=== PATIENT | male | born 1995 ===

== ENCOUNTER 2023-03-09 00:19 | Emergency (ER) | payer OTHER, SELFPAY ==
[2023-03-09 00:20] VITALS: BP 127/62; PULSE 75; RESP 18; TEMP 36.8; O2SAT 96; BMI 29.2
--- NOTE | 2023-03-09 01:21 | ED.GENADULT ---
HPI - General Adult General Chief complaint: Ear Problems Stated complaint: ear infection Time Seen by Provider: 03/09/23 01:25 Source: patient Mode of arrival: ambulatory Limitations: no limitations History of Present Illness HPI narrative: Patient is a 28 year old assigned male at with no reported medical history presenting to the emergency department today with left ear pain and intermittent left sided hearing loss. Patient states that over the last few days he has felt generally unwell with a cough, left ear pain, and intermittent left sided hearing loss that is improving. Patient denies any dizziness, lightheadedness, abdominal pain, nausea, vomiting, fever, chills, blurry vision, double vision, loss of vision, chest pain, difficulty breathing, shortness of breath, back pain, night sweats, pain with urination, increased urinary frequency, increased urinary urgency, blood in his urine or stool, syncope or a near syncopal episode, recent trauma or falls, bowel incontinence, bladder incontinence, bowel retention, bladder retention, or any other complaints at this time. Onset (ago): day(s) Severity: mild Severity scale (1-10): 2 Relieving factors: none Exacerbating factors: none Associated symptoms: cough Treatments prior to arrival: none Related Data Previous Rx's Medication Instructions Recorded amoxicillin 875 mg-potassium 1 tab PO BID 7 days #14 tabs 03/09/23 clavulanate 125 mg tablet prednisone 20 mg tablet 20 mg PO DAILY 7 days #7 tabs 03/09/23 Allergies Allergy/AdvReac Type Severity Reaction Status Date / Time No Known Allergies Allergy Verified 03/09/23 00:25 Review of Systems Constitutional: Constitutional: Reports no additional constitutional complaints, Denies chills, Denies fever(s) and Denies night sweats Eyes: Eyes: Reports no additional eye complaints, Denies blurry vision, Denies change in vision, Denies diplopia, Denies eye discharge, Denies loss of vision and Denies eye pain ENT: Denies dizziness Comments: left ear pain Cardiovascular: Cardiovascular: Reports no additional cardiovascular complaints, Denies chest pain, Denies lightheadedness, Denies Loss of Consciousness and Denies dyspnea Respiratory: Respiratory: Reports no additional respiratory complaints, Reports cough and Denies dyspnea Gastrointestinal: Gastrointestinal: Reports no additional gastrointestinal complaints, Denies abdominal pain, Denies melena, Denies hematochezia, Denies change in bowel habits and Denies change in stool character Genitourinary: Genitourinary: Reports no additional male genitourinary complaints, Denies hematuria, Denies oliguria, Denies difficulty urinating, Denies dysuria, Denies urinary frequency, Denies urinary hesitancy, Denies urinary incontinence and Denies urinary urgency Musculoskeletal: Musculoskeletal: Reports no additional musculoskeletal complaints, Denies numbness and Denies tingling Neurologic: Denies dizziness, Denies loss of vision, Denies numbness and Denies tingling Psychiatric: Psychiatric: Reports no additional psychiatric complaints Endocrine: Endocrine: Reports no additional endocrine complaints Hematologic/Lymphatic: Hematologic/Lymphatic: Reports no additional hematologic/lymphatic complaints Allergic/Immunologic: Allergic/Immunologic: Reports no additional allergic/immunologic complaints PMFSH Past Medical History Attestation statement: The following information was validated with the patient. Source: old records reviewed and nursing notes reviewed Onset Date is defined in the Problem List Problems that require an onset date and time if occurred within 24 hrs of arrival to the ED Aortic Dissection and Rupture; Neurologic impairment; Cardiopulmonary Arrest; Endotracheal Intubation; Insertion or Replacement of Mechanical Circulatory Assist Device Social History Social History Advance Directives: No Advance Directives Information Provided: No Physical Exam ED Vital Signs: Vital Signs - 24 hr 03/09/23 00:20 Temperature 98.2 F Pulse Rate 75 Respiratory Rate 18 Blood Pressure 127/62 Pulse Oximetry 96 Oxygen Delivery Method Room Air BMI result Body Mass Index 29.2 Const General: cooperative, no acute distress, alert and awake Nutritional Appearance: well nourished Orientation/consciousness: patient oriented x3 Limitations: no limitations HENMT Head: Yes normal to inspection and Yes atraumatic Ears: hearing grossly normal bilaterally, external ears normal, TM normal on the right, TM normal on the left and Abnormal EAC present excessive cerumen on the right General nose exam: Normal external nose present, no nasal discharge noted and no epistaxis Face and sinus: Yes normal facial exam, No abrasion and No laceration Mouth: Normal oral and palatal mucosa present, no drooling and no muffled voice Eyes General: appearance normal, both eyes and all related structures Periorbital: periorbital findings normal Eyelids: Yes eyelids normal Conjunctivae: conjunctivae normal Pupils: Equal, round and reactive pupils present EOM: EOMs intact bilaterally Neck Neck: Yes normal visual inspection, Yes full ROM and Yes no lymphadenopathy Chest Chest palpation & inspection: normal inspection of the chest Resp Effort & Inspection: normal respiratory effort and able to speak in complete sentences GI Inspection: Yes normal to inspection Neuro General: patient oriented x3 and moves all extremities Cranial nerves: Yes Equal, round and reactive pupils present Cognition (Neuro): normal cognition Motor exam (neuro): 5/5 motor strength present throughout Sensory Exam: Normal double simultaneous stimulation for sensation Coordination: [id number] test normal Extrem General: Yes normal to inspection, Yes full ROM and Yes capillary refill normal Psych Appearance: grossly normal Mental Status: mental status grossly normal Affect: normal affect Attitude: cooperative Thought process: Normal thought process present Thought content: Normal thought content present Insight: Good insight present (Psych) Medical Decision Making Medical Decision Making MDM Narrative: Patient is a 28 year old assigned male at with no reported medical history presenting to the emergency department today with left sided ear pain and a cough. Patient's physical exam was as noted in the physical exam portion of this note. Patient's COVID-19 and influenza tests were negative. Patient's RSV test was positive. I explained my physical exam findings as well as all test results to the patient. I answered all questions asked by the patient. I stressed the importance of the patient taking his medication as prescribed. I stressed the importance of the patient following up with his primary care provider. I stressed the importance of the patient returning to the emergency department immediately if his symptoms were to worsen or if he were to develop any dizziness, shortness of breath, difficulty breathing, chest pain, blurry vision, loss of vision, nausea, vomiting, abdominal pain, fever, chills, back pain, or any other complaints. Patient verbalized agreement and understanding with this treatment plan and discharge. Differential Diagnosis Differential Diagnoses: The differential diagnosis associated with the presentation includes Left otitis media Left otitis externa RSV Influenza COVID-19 Admission/Observation Consideration of admission/observation: Escalation of care including admission/observation considered Patient would have been admitted to the hospital had his work up had any findings where hospital admission was appropriate and his clinical presentation warranted hospital admission. Lab Data [facility] Lab Attestation statement: I reviewed the patient's lab results. My interpretation of these results are in the MDM Rationale portion of this note. Labs: Lab Results 03/09/23 Range/Units Unknown Influenza Type A (PCR) NEGATIVE (Negative) Influenza Type B (PCR) NEGATIVE (Negative) RSV RNA Qual (PCR) POSITIVE A (Negative) SARS-CoV-2 RNA (RT-PCR) NEGATIVE (Negative) Prescription Management I considered prescription management with: Antibiotic (patient prescribed an antibiotic to cover for otitis) Discharge Plan Discharge Clinical Impression: Respiratory syncytial virus (RSV), Otitis media Patient Disposition: Home, Self-Care Instructions: Respiratory Syncytial Virus (ED), Ear Infection (ED) Additional Instructions: Follow up with your primary care provider. Return to the emergency department immediately if your symptoms worsen or if you develop any dizziness, shortness of breath, difficulty breathing, chest pain, blurry vision, loss of vision, nausea, vomiting, abdominal pain, fever, chills, back pain, or any other complaints. Prescriptions: New prednisone 20 mg tablet 20 mg PO DAILY 7 Days Qty: 7 0RF amoxicillin-pot clavulanate 875-125 mg tablet 1 tab PO BID 7 Days Qty: 14 0RF Referrals: [facility] [place] Family Medicine [Provider Group] (Call to establish and follow up with a primary care provider. If you already have a primary care provider, please follow up with them.) [facility] [place] [facility] [Provider Group] (Call to establish and follow up with a primary care provider. If you already have a primary care provider, please follow up with them.) [facility] [place] Primary Care,[facility] [Provider Group] (Call to establish and follow up with a primary care provider. If you already have a primary care provider, please follow up with them.) Interventions: ED Discharge Assessment Last Done: 03/09/23 01:33 Discharge Date/Time: 03/09/23 01:34 Print Language: Estonian
[2023-03-09 01:26] VITALS: BP 114/51; PULSE 84; RESP 18; TEMP 37; O2SAT 96
[2023-03-09 02:11] LABS: Influenza A PCR NEGATIVE (Negative); Influenza B PCR NEGATIVE (Negative); Resp Syncy Virus RNA Qual PCR POSITIVE (Negative); SARS COV2 PCR INHOUSE NEGATIVE (Negative)
== END 2023-03-09 01:34 | disposition home or self-care (01) ==
PROVIDERS: Physician Assistant Medical; Emergency Provider Internal Medicine
DX: H65.92 Unspecified nonsuppurative otitis media, left ear (principal); B97.4 Respiratory syncytial virus as the cause of diseases classified elsewhere; Z20.822 Contact with and (suspected) exposure to COVID-19; Z20.828 Contact with and (suspected) exposure to other viral communicable diseases
CPT/HCPCS: 0241U; 99283

== ENCOUNTER 2024-03-10 15:59 | Emergency (ER) | payer OTHER, SELFPAY ==
--- NOTE | ~2024-03-10 | XR_ITS ---
CLINICAL HISTORY: lower back pain 3 views lumbar spine Comparison: None Findings: Normal vertebral body alignment. No acute fractures or dislocation. No significant degenerative change. IMPRESSION: No acute findings. This document has been electronically signed by: Gavin Duffy MD on 03/10/2024 17:38:49
[2024-03-10 16:09] VITALS: BP 135/80; PULSE 71; RESP 18; TEMP 36.7; O2SAT 99; BMI 29.4
--- NOTE | 2024-03-10 16:14 | ED.GENADULT ---
HPI - General Adult General Chief complaint: Back Pain/Injury Stated complaint: low back pain Time Seen by Provider: 03/10/24 21:30 Source: patient Limitations: no limitations History of Present Illness HPI narrative: 29-year-old male presents for evaluation of low back pain. It is that his symptoms have been going on for approximately 4 weeks. He reports that during this time he has started running on a treadmill. Patient states after some time running he does have some soreness to the low back. Back is tight and pulling. He denies any direct trauma. Patient states makes it worse. He has not tried any other medication. Patient states he feels as though his urine is ?bubbly? but denies any penile discharge, fevers, nausea, vomiting, and abdominal pain dysuria or hematuria. He denies any history of kidney stones. He has been eating and drinking normally. He is otherwise feeling well. No bowel or bladder incontinence. Related Data Previous Rx's ?Medication ?Instructions ?Recorded amoxicillin 875 mg-potassium 1 tab PO BID 7 days #14 tabs 03/09/23 clavulanate 125 mg tablet prednisone 20 mg tablet 20 mg PO DAILY 7 days #7 tabs 03/09/23 Allergies Allergy/AdvReac Type Severity Reaction Status Date / Time No Known Allergies Allergy Verified 03/10/24 16:12 Review of Systems Constitutional: Constitutional: Denies chills and Denies fever(s) Cardiovascular: Cardiovascular: Denies chest pain, Denies palpitations, Denies dyspnea, Denies dyspnea on exertion and Denies orthopnea Respiratory: Respiratory: Denies cough, Denies dyspnea and Denies dyspnea on exertion Gastrointestinal: Gastrointestinal: Denies abdominal pain, Denies melena, Denies hematochezia, Denies diarrhea, Denies nausea and Denies vomiting Genitourinary: Genitourinary: Denies difficulty urinating, Denies dysuria and Denies urinary urgency Musculoskeletal: Musculoskeletal: Denies abnormal gait, Reports back pain, Denies myalgias, Denies muscle weakness, Denies numbness and Denies radiating pain into limb Integumentary/Breasts: Skin/Breast: Denies rash Neurologic: Denies abnormal gait, Denies focal weakness and Denies numbness Psychiatric: Psychiatric: Denies depression Endocrine: Endocrine: Denies palpitations PMFSH Social History Social History Unable to assess alcohol history related to: Unknown Smoked in Last 30 Days: No Use of substances other than those prescribed or required for medical reasons: No Advance Directives: No Advance Directives Information Provided: Yes Do you have a plan to hurt others: No Plan Physical Exam ED Vital Signs: Vital Signs - 24 hr 03/10/24 16:09 03/10/24 21:23 03/10/24 22:25 Temperature 98.1 F 97.5 F 97.5 F Pulse Rate 71 68 68 Respiratory Rate 18 16 16 Blood Pressure 135/80 122/61 122/61 Pulse Oximetry 99 100 100 Oxygen Delivery Method Room Air Room Air Room Air BMI result Body Mass Index 29.4 Const General: cooperative, no acute distress, alert and awake Orientation/consciousness: patient oriented x3 Resp Auscultation: clear to auscultation bilaterally Cardio Rate: regular rate Rhythm: regular rhythm Back/Spine/Pelvis Other: Patient is ambulatory in the emergency department without difficulty. Special Investigation Unit Investigator is 5/5 bilaterally. Full range of motion of all joints. Mild lumbar muscle tightness without any tenderness. No obvious spasm. No change with twisting. No skin changes or ecchymosis. No sciatic notch tenderness bilaterally Neuro General: patient oriented x3 and CN's II-XI intact bilaterally Course Course Course Narrative: This is a rapid medical exam performed by Sergio Kelly NP: Additional HPI, ROS, PE not included below will be deferred to primary provider. Patient is a 29-year-old male presenting with mid to lower back pain, also reports bubbles in his urine. Plan: UA, lumbar x-ray Medical Decision Making Medical Decision Making MDM Narrative: 29-year-old male with low back pain over the past several weeks, intermittent in nature and appears to be exacerbated with recent running on a treadmill. He denies any direct trauma. X-ray and urinalysis are unremarkable. There are no focal deficits on exam. He is ambulatory without difficulty. I have had a discussion with the patient regarding additional medications such as a muscle relaxer but the patient has refused. He will continue symptomatic and follow up with PCP. Consideration with the patient to rest and avoid strenuous activity. No evidence of cauda equina , no acute radiculopathy therefore defer on additional imaging at this time. Patient expresses understanding of all discharge instructions and has no further questions at this time. Differential Diagnosis Differential Diagnoses: The differential diagnosis associated with the presentation includes Cauda equina Disc herniation Muscle spasm Nerve impingement Muscle strain Lab Data MDM Lab Attestation statement: I reviewed the patient's lab results. Labs: Lab Results 03/10/24 Range/Units 17:16 Urine Color Yellow Urine Appearance Clear Urine pH 6.0 (5.0-9.0) Ur Specific [place] 1.010 (1.005-1.025) Urine Protein Negative (Neg-Trace) mg/dL Urine Glucose (UA) Negative (Negative) mg/dL Urine Ketones Negative (Negative) mg/dL Urine Blood Negative (Negative) Urine Nitrite Negative (Negative) Ur Leukocyte Esterase Negative (Negative) Radiology Impression Discussion of test interpretation with radiology: I have reviewed the radiologist's reading. Radiologist Impression: [address] [address] XRay Report Signed Patient: Taz Lund MR#: [id number] : 1995 Acct:[id number] Age/Sex: 29 / M ADM Date: 03/10/24 Loc: .ED Attending Dr: Ordering Physician: La Kelly NP Date of Service: 03/10/24 Procedure(s): XR lumbar spine 2-3V Accession Number(s): [id number] cc: Physician,None ; La Kelly NP~ CLINICAL HISTORY: lower back pain 3 views lumbar spine Comparison: None Findings: Normal vertebral body alignment. No acute fractures or dislocation. No significant degenerative change. IMPRESSION: No acute findings. This document has been electronically signed by: Gavin Duffy MD on 03/10/2024 17:38:49 Dictated By: Gavin Duffy MD Signed By: <Electronically signed by Gavin Duffy MD in OV> 03/10/24 1740 DD/ 1738 TD/TT: 03/10/24 1738 Back Filler Operator: Discharge Plan Discharge Clinical Impression: Strain of lumbar region Qualifiers: Encounter type: initial encounter Qualified Code(s): S39.012A - Strain of muscle, fascia and tendon of lower back, initial encounter Patient Disposition: Home, Self-Care Instructions: Acute Low Back Pain (ED) Additional Instructions: Urine test and x-ray of your low back were normal today. Rest. Avoid strenuous activity. Warm compresses. Gentle stretching. Ibuprofen as directed, available [id number]. Take with food. Follow-up with your primary care provider. Call this week to schedule a follow-up appointment. Return to the emergency department if you have any worsening of symptoms, or any concerns. Get well soon! Prescriptions: No Action prednisone 20 mg tablet 20 mg PO DAILY 7 Days Qty: 7 0RF amoxicillin-pot clavulanate 875-125 mg tablet 1 tab PO BID 7 Days Qty: 14 0RF Interventions: ED Discharge Assessment Last Done: 03/10/24 22:25 Discharge Date/Time: 03/10/24 22:26 Print Language: Latvian
--- OUTSIDE RECORDS SUMMARY | 2024-03-10 16:45 | XMS_ITS | Continuity of Care Document ---
Author Name [facility] Organization [facility] Care Team Providers Care Retail Service Representative Name Role Phone [facility] Unavailable Unavailable Medications Combined list of outpatient medications from Department of Defense and Veterans Affairs facilities.Medications provided include 1) outpatient medications from the last 15 months, and 2) patient-reported medications. Medication Details Route Status Patient Instructions Prescription Expires Prescription Number Last Dispense Date Ordering Provider Order Date Order Qty Source AMOX TR-POTASSIU M CLAVULANATE (AMOXICILLI N/POTASSIUM CLAV), 875-125 MG, TABLET, ORAL, AUROBINDO PHARM, 20 ea. BOTTLE Active [id number] 2023 14 Pharmac y Data Transac tion Service Facilit y ONDANSETRON ODT (ONDANSETRO N), 4 MG, TAB RAPDIS, ORAL, AUROBINDO PHARM, 30 ea. BLIST PACK Active [id number] 4 2023 10 Pharmac y Data Transac tion Service Facilit y PREDNISONE (prednisone ), 20 MG, TABLET, ORAL, MYLAN, 500 ea. BOTTLE Active [id number] 4 2023 7 Pharmac y Data Transac tion Service Facilit y Allergies, Adverse Reactions, Alerts Combined list of allergies from Department of Defense and Veterans Affairs facilities. It does not include entries that were removed or entered in error. Substance Category Reaction Severity Reaction type Status Date Reported Comments Source No Known Allergies Drug allergy (disorder) active 01/16/2016 [place] [address] Immunizations Combined list of available immunizations from the Department of Defense and Veterans Affairs facilities. Immunization Series Date Given Administered By Site Reaction Lot Number CVX Code Drug Trains Dispatcher Supervisor Status Comments Source COVID-19, mRNA, LNP-S, PF, 30 mcg/0.3 mL dose 2020 [place] (PFR) Not Given COVID-19, mRNA, LNP-S, PF, 30 mcg/0.3 mL dose [facility] COVID-19, mRNA, LNP-S, PF, 30 mcg/0.3 mL dose 2020 [employer] [place] (PFR) Not Given COVID-19, mRNA, LNP-S, PF, 30 mcg/0.3 mL dose DoD influenza virus vaccine, inactivated 2019 JACK Ortiz ochoa, left (delt oid) [id number] Seqirus, A [employer] complet ed influenza virus vaccine, inactivat ed 12/28/19 Given [id number] cathy Ocasio [facility] influenza, injectable, quadrivalent- pf 2018 [id number] Seqirus complet ed influenza , injectabl e, quadrival ent-pf 02/11/19 Given Ambulat ory Pharmac y influenza, injectable, quadrivalent 2017 [id number] 158 GlaxoSmithKli ne complet ed influenza , injectabl e, quadrival ent 01/08/18 Given Ambulat ory Pharmac y influenza, injectable, quadrivalent 2017 [id number] 158 GlaxoSmithKli ne complet ed influenza , injectabl e, quadrival ent 01/08/18 Given Ambulat ory Pharmac y influenza, injectable, quadrivalent, contains preservative 3 2017 [id number] 158 SmithKline (SKB) complet ed influenza , injectabl e, quadrival ent, contains preservat gema DoD Influenza, inj, MDCK, quadrivalent- pf 2016 [id number] Seqirus complet ed Influenza , inj, MDCK, quadrival ent-pf 02/13/17 Given Ambulat ory Pharmac y Influenza, inj, MDCK, quadrivalent- pf 2016 [id number] 171 Seqirus complet ed Influenza , inj, MDCK, quadrival ent-pf 02/13/17 Given Ambulat ory Pharmac y Influenza, injectable, Madin Jackson Canine Kidney, preservative free, quadrivalent 2 2016 [id number] 171 Seqirus (SEQ) comple t ed Influenza , injectabl e, Madin Ilsa Canine Kidney, preservat gema free, quadrival ent DoD hepatitis B adult vaccine 2016 [id number] 43 GlaxoSmithKli ne complet ed hepatitis B adult vaccine 08/08/16 Given Ambulat ory Pharmac y hepatitis B adult vaccine 2016 [id number] 43 GlaxoSmithKli ne complet ed hepatitis B adult vaccine 08/08/16 Given Ambulat ory Pharmac y hepatitis B vaccine, adult dosage 3 2016 [id number] 43 SmithKline (SKB) complet ed hepatitis B vaccine, adult dosage DoD hepatitis B adult vaccine 2015 [id number] 43 GlaxoSmithKli ne complet ed hepatitis B adult vaccine 02/24/16 Given Ambulat ory Pharmac y varicella virus vaccine 2015 [id number] 21 Merck & Company Inc complet ed varicella virus vaccine 02/24/16 Given Ambulat ory Pharmac y varicella virus vaccine 2015 [id number] 21 Merck & Company Inc complet ed varicella virus vaccine 02/24/16 Given Ambulat ory Pharmac y hepatitis B adult vaccine 2015 [id number] 43 GlaxoSmithKli ne complet ed hepatitis B adult vaccine 02/24/16 Given Ambulat ory Pharmac y varicella virus vaccine 1 2015 [id number] 21 Merck (MSD) complet ed varicella virus vaccine DoD hepatitis B vaccine, adult dosage 1 2015 [id number] 43 SmithKline (SKB) complet ed hepatitis B vaccine, adult dosage DoD varicella virus vaccine 2015 [id number] 21 Merck & Company Inc complet ed varicella virus vaccine 01/14/16 Given Ambulat ory Pharmac y hepatitis B adult vaccine 2015 [id number] 43 GlaxoSmithKli ne complet ed hepatitis B adult vaccine 01/14/16 Given Ambulat ory Pharmac y varicella virus vaccine 2015 [id number] 21 Merck & Company Inc complet ed varicella virus vaccine 01/14/16 Given Ambulat ory Pharmac y hepatitis B adult vaccine 2015 [id number] 43 GlaxoSmithKli ne complet ed hepatitis B adult vaccine 01/14/16 Given Ambulat ory Pharmac y varicella virus vaccine 1 2015 [id number] 21 Merck (MSD) complet ed varicella virus vaccine DoD hepatitis B vaccine, adult dosage 1 2015 [id number] 43 SmithKline (SKB) complet ed hepatitis B vaccine, adult dosage DoD tetanus, diphtheria, acellular pertu is 2015 [id number] 115 GlaxoSmithKli ne complet ed tetanus, diphtheri a, acellular pertussis 01/09/16 Given Ambulat ory Pharmac y tuberculin purified protein derivative 2015 [id number] 96 sanofi pasteur complet ed tuberculi n purified protein derivativ e 01/09/16 Given Ambulat ory Pharmac y influenza, injectable, quadrivalent- pf 2015 [id number] 150 Seqirus complet ed influenza , injectabl e, quadrival ent-pf 01/09/16 Given Ambulat ory Pharmac y poliovirus vaccine, inactivated 2015 [id number] 10 sanofi pasteur complet ed polioviru s vaccine, inactivat ed 01/09/16 Given Ambulat ory Pharmac y adenovirus vaccine, live 2015 [id number] 143 Teva Pharmaceutica ls complet ed adenoviru s vaccine, live 01/09/16 Given Ambulat ory Pharmac y influenza, seasonal, injectable-pf 2015 [id number] 140 Seqirus complet ed influenza , seasonal, injectabl e-pf 01/09/16 Given Ambulat ory Pharmac y meningococcal A,C,Y,W-135 (MCV4P) 2015 [id number] 114 sanofi pasteur complet ed meningoco ccal A,C,Y,W-1 35 (MCV4P) 01/09/16 Given Ambulat ory Pharmac y tetanus, diphtheria, acellular pertu is 2015 [id number] 115 EyelationK[employer] ne complet ed tetanus, diphtheri a, acellular pertussis 01/09/16 Given Ambulat ory Pharmac y meningococcal A,C,Y,W-135 (MCV4P) 2015 [id number] 114 sanofi pasteur complet ed meningoco ccal A,C,Y,W-1 35 (MCV4P) 01/09/16 Given Ambulat ory Pharmac y poliovirus vaccine, inactivated 2015 [id number] 10 sanofi pasteur complet ed polioviru s vaccine, inactivat ed 01/09/16 Given Ambulat ory Pharmac y adenovirus vaccine, live 2015 [id number] 143 Teva Pharmaceutica ls complet ed adenoviru s vaccine, live 01/09/16 Given Ambulat ory Pharmac y influenza, seasonal, injectable-pf 2015 [id number] 140 Seqirus complet ed influenza , seasonal, injectabl e-pf 01/09/16 Given Ambulat ory Pharmac y influenza, injectable, quadrivalent- pf 2015 [id number] 150 Seqirus complet ed influenza , injectabl e, quadrival ent-pf 01/09/16 Given Ambulat ory Pharmac y poliovirus vaccine, inactivated 1 2015 [id number] 10 Sanofi Pasteur ([facility]) complet ed polioviru s vaccine, inactivat ed DoD meningococcal polysaccharid e (groups A, C, Y and W-135) diphtheria toxoid conjugate vaccine (MCV4P) 1 2015 [id number] 114 Sanofi Pasteur ([facility]) complet ed meningoco ccal polysacch aride (groups A, C, Y and W-135) diphtheri a toxoid conjugate vaccine (MCV4P) DoD tetanus toxoid, reduced diphtheria toxoid, and acellular pertu is vaccine, adsorbed 1 2015 [id number] 115 [employer] (SKB) complet ed tetanus toxoid, reduced diphtheri a toxoid, and acellular pertussis vaccine, adsorbed DoD Influenza, seasonal, injectable, preservative free 1 2015 [id number] 140 Seqirus (SEQ) comple t ed Influenza , seasonal, injectabl e, preservat gema free DoD Adenovirus, type 4 and type 7, live, oral 1 2015 [id number] 143 [facility] (R) complet ed Adenoviru s, type 4 and type 7, live, oral DoD Influenza, injectable, quadrivalent, preservative free 1 2015 [id number] 150 Seqirus (SEQ) comple t ed Influenza , injectabl e, quadrival ent, preservat gema free DoD measles virus vaccine 0 2015 05 () Not Given measles virus vaccine DoD rubella virus vaccine 0 2015 06 () Not Given rubella virus vaccine DoD mumps virus vaccine 0 2015 07 () Not Given mumps virus vaccine DoD hepatitis A vaccine, adult dosage 0 2015 52 () Not Given hepatitis A vaccine, adult dosage DoD Vital Signs Combined list of inpatient and outpatient Vital Signs from Department of Defense and Veterans Affairs, ranging from 12 months to all on record, depending upon the facility. Vital Sign Value Date Comments Source No data available for this section Ambulatory Pharmacy Encounters Combined list of: 1) Encounters from Department of Veterans Affairs facilities [facility] 2) Encounters from the Department of Defense facilities going back up to 280 months. Location Location Details Encounter Type Encounter Number Reason For Visit Attending Provider ADM Date DC Date Status Disposition Source [facility] [place] [address]([facility]a ring Conservat ion, BMT) OUTPATIENT [id number] MAXIMUS AJITH Valadez 01/15 Released w/o Limitations [facility] [place] [address](H earing Conserv ation, BMT) [facility] [address]([facility]) OUTPATIENT [id number] Notes Entered by: DIAN MCCULLOUGH 16 Jan 2016 0805 ------- ------- ------- ------- -- Strep Prophyl VENECIA Quesada 01/15 Released w/o Limitations [facility] [place] [address]([facility] d) [facility] [address]([facility]) OUTPATIENT [id number] Notes Entered by: ESMER NGUYEN MA P 21 Jan 2016 1157 ------- ------- ------- ------- -- Cold KERI Marion 01/20 Released w/o Limitations [facility] [place] [address]([facility]) Carl Aguilar [facility]ly [facility]) TELE CONSULT [id number] Notes Entered by: Alexandr LIMON 09 Aug 2017 1130 ------- ------- ------- ------- -- In Person RANDELL SMITH 08/09 Other Not Elsewhere Classified Carl woodruff [facility]( [facility]) [id number] [facility] Outpatient [id number] SHAHBAZ FELIPE 12/23 Discharge Disposition: Home or Self Care [id number] [facility] Procedures Combined list of: 1) Procedures from Department of Veterans Affairs facilities going back up to thelast 18 months, not all VA non-surgical procedures are included; 2) All procedures from the Department of Defense facilities. Procedure Procedure Type Code Date Perfomer Comments Rafita rose No data available for this section Ambulato ry Pharmacy Physician Supervised Injection Intramuscular Antibiotic Physician Supervised Injection Intramuscular Antibiotic [id number] 01/16/20 16 VENECIA MCCULLOUGH [facility] Threshold Audiogram (Pure Tone) Automated Threshold Audiogram (Pure Tone) Automated 0208T 01/16/20 16 MAXIMUS AJITH Valadez [facility] THERAPEUTIC, PROPHYLACTIC, OR DIAGNOSTIC INJECTION (SPECIFY SUBSTANCE OR DRUG); SUBCUTANEOUS OR INTRAMUSCULAR 01/16/20 16 [facility] PURE TONE AUDIOMETRY (THRESHOLD), AUTOMATED; AIR ONLY 01/16/20 16 [facility] Social History Combined list of available smoking, tobacco, and other social history from Department of Defense and Veterans Affairs facilities. Social History Type Response Date Comment [facility] e Male 12/08/2019 Ambulatory Pha rmacy Sexual Orientation Ambula tory Pharmacy Gender identity Ambulator y Pharmacy This section is an empty soc ial history section. DoD Assessment and Plan Combined list of future care activities from Department of Defense and Veterans Affairs facilities (e.g., assessment and plan notes, appointments, orders, and referrals). Additional future care activities may be listed in the Plan of Care section. Result Assessment and Plan Date Source Assessment and Plan Extracted from:Title : AUoF PHA Author: GERMÁN BAE Date: 12/27/23 ?Vitals: Blood Pressure:???120/74 Heart Rate: 76 Height: 67 Weight: 180 Medications: None Chronic Problems: None SF 507: N/A Comments: DVA (uncorrected) OD: 20/ 40 OS:?20/ 25 NVA (uncorrected) OD: 20/ 20 OS: 20/ 20 Color Vision: Pass Confrontational Mercedes: Pass Optometry findings meet standards- _ Addendum by SHAHBAZ JEFFERS MD on December 27, 2023 11:23 EDT Chief Complaint: Member here for annual PHA.?No acute complaints.?IMR?green. HEENT:?Normal Joints:?Normal Lungs:?Normal Heart:?Normal Comments: ANNUAL PERIODIC HEALTH ASSESSMENT I. 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 Last Name: FERRELL 2. First Name: JOSE MANUEL 3. Middle Name: GIRISH 4. Assessment Date: 5. : 6. Age: 28 7. Gender: M 8. DoD ID Number: [id number] 9. Service Branch: [employer] 10. 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 Status: Active [employer] [place] 12. 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 Unit Name: [address] [employer] 14. Duty Station/Location: [place] 15. UIC: [id number] 16. Is this your first Periodic Health Assessment (PHA)?: N 17. Are you enrolled in a secure messaging system with your health care provider?: U 18. Current contact information: Preferred Method: Email 2 DSN: [id number] Day Time Phone: [phone] Night Time Phone: [phone] Email 1: [email or web address] Email 2: [email or web address] Address: [address] [place] [address]: [place] State: [place] Zip Code: [address] 19. Point of contact who can always reach you: Name: Tiffanie Ferrell Phone 1: [phone] Phone 2: EMAIL: Address: [address] [place] [address] City: [place] State: [place] Zip Code: [address] II. DEPLOYMENT INFORMATION (DEP) 1. [ 0 ] Total number of deployments in the PAST 5 YEARS 4. [ N ] Are you going to deploy within the NEXT 120 DAYS? III. OCCUPATIONAL INFORMATION (OCC) 1 [ 3P051 ] What is your occupational code 2. [ Walking, driving ] Describe your typical duty 3. [ No ] Does your specialty require an operational duty physical exam? 4. [ No ] Are you currently enrolled in a medical surveillance/occupational health program?: No IV. MEDICAL CONDITIONS (JACQUES): 1. Since your last PHA, have you experienced any of the following health conditions, and if so, what is your status? [ ] Conditions with no medical care [ ] Conditions with medical care, but no longer under treatment [ ] Conditions with medical care, and NOW under treatment 2. Since your last PHA, have you experienced any of the following health conditions, and if so, what is your status? [ ] Conditions with no medical care [ ] Conditions with medical care, but no longer under treatment [ ] Conditions with medical care, and NOW under treatment 3. For any condition marked YES in question 1 or 2, are you currently on any profile or limited duty for that condition? [ ] Conditions 4. [ No ] Have you been based or stationed at a location where an open burn pit was used? 5. [ No ] Have you been exposed to toxic airborne chemicals or other airborne contaminants? 8. Have you had any surgery since your last PHA?: No 10.a. [ No ] Since your last PHA, has a health care provider recommended surgery(s) that you have not had? 11.a. [ No ] Do you currently require hearing aids, special medical supplies, CPAP, adaptive equipment, assistive technology devices, and/or other special accommodations? 12.a. [ No ] Do you have a waiver or profile for any part of your Service's physical fitness test? 13.a. [ No ] Do you have any problems wearing a gas mask, ballistic helmet, body armor, and/or chemical/biological protective garments? 14.a. [ No ] Have you ever been told by a health care provider that you SHOULD NOT receive an immunization for medical reasons? 15.a. [ No ] Do you have a permanent profile or an Assignment Limitation Code C? 16.a. [ No ] Are you on a temporary profile or limited duty? 17. [ 0 ] During the PAST 2 years, how many times have you been placed on a temporary profile or on limited duty? V. INDIVIDUAL MEDICAL READINESS (IMR) 1. [ No ] Do you have any allergies? 3. [ Not required ] Do you have red medical warning dog tags? 4. [ No ] Do you wear corrective lenses? . BEHAVIORAL HEALTH (MHA) 1. a. [ sleep sleep ] Over the PAST MONTH, what major life stressors have you experienced that are a cause of significant concern or make it difficult for you to do your work, take care of things at home, or get along with other people (for example, serious conflicts with others, relationship problems, or a legal, disciplinary or financial problem)? 1. b. [ No ] Are you currently in treatment or getting professional help for this concern? 2. a. [ No ] In the PAST YEAR did you receive care for any mental health condition or concern such as, but not limited to post traumatic stress disorder (PTSD), depression, anxiety disorder, alcohol abuse or substance abuse? 3. [ None ] What prescription or over-the counter medications (including herbals/supplements) for sleep, pain, combat stress, or a mental health problem are you CURRENTLY taking? 4. a. [ No ] In the past 12 months, have you gambled? 5. a. [ Monthly or less ] How often do you have a drink containing alcohol? 5. b. [ 1 or 2 ] How many drinks containing alcohol do you have on a typical day when you are drinking? 5. c. [ Less than monthly ] How often do you have six or more drinks on one occasion? 6. Have you ever had any experience that was so frightening, horrible, or upsetting that in the PAST MONTH, you: 6. a. [ No ] Have had nightmares about it or thought about it when you did not want to? 6. b. [ No ] Tried hard not to think about it or went out of your way to avoid situations that remind you of it? 6. c. [ No ] Were constantly on guard, watchful or easily startled? 6. d. [ No ] [place] numb or detached from others, activities, or your surroundings? 6. e. [ Not answered ] [place] guilt or unable to stop blaming yourself or others for the event(s) or any problems the event(s) may have caused? 7. Over the LAST 2 WEEKS, how often have you been bothered by the following problems? 7. a. [ Not at all ] Little interest or pleasure in doing things 7. b. [ Not at all ] Feeling down, depressed, or hopeless 8. [ No ] Would you like to schedule an appointment with a health care provider to discuss any health concern(s)? 9. [ No ] Are you interested in receiving information or assistance for a stress, emotional or alcohol concern? 10. [ No ] Are you interested in receiving assistance for a family or relationship concern? 11. [ No ] Would you like to schedule a visit with a neuro intensivist physician, mental health care provider, or a community support counselor? VII. FAMILY HISTORY AND LIFESTYLE (LIF) 1. [ Very Good ] Overall, how would you rate your health during the PAST MONTH? 2. [ Diabet ] Member indicates that family members have the following problems 5. The following family members has/had a history of diabetes: Unknown: Grandmother, Grandfather 6. [ Yes ] I participate in moderate intensity physical activites at least 2.5 hours, or a combination of moderate and vigorous aerobic activites, for at least 75 minutes per week. 7. In a typical week, I do physical activities specifically designed to STRENGTHEN my muscles: [ 2 ] Day(s) per week 8. [ None ] What prescriptions or [id number] medications are you CURRENTLY taking for health problems on a ROUTINE BASIS? 9. Which of the following products have you taken since your last PHA: Protein Supplements/Creatine: Every other day Multi-Vitamins: Once a week 11. Think about the PAST 30 DAYS. How often did you eat/drink the following foods/beverages? [ 3 to 6 servings per week ] Fruits [ 1 or 2 servings per week ] Vegetables [ 3 to 6 servings per week ] Starchy Vegetables [ 3 to 6 servings per week ] Whole Grains [ 3 to 6 servings per week ] Dairy and Calcium Containing Foods [ Rarely or Never ] Fish [ 3 to 6 servings per week ] Lean Protein [ 1 or 2 servings per week ] Sugar-Sweetened Beverages ] Have you had a cholesterol check by a health insurance healthcare consultant within the PAST 5 YEARS? 13.a. In the PAST 30 DAYS, which of the following products have you used on at least one day? None 15. Which of the following best describes your past tobacco use? I have never used tobacco products. 16. [ No ] Are you regularly exposed to secondhand smoke? 17. [ 5 to less than 7 hours ] During the LAST 2 WEEKS, how many hours of sleep did you get on most days? 18. [ No ] During the LAST 2 WEEKS, have you felt impaired or unable to adequately perform due to sleepiness or poor quality sleep? 19. [ No ] Have you had any unexplained weight loss or gain since your last PHA? 20. Member is not at risk for sexually transmitted infections. 22. Since your last PHA, what, if anything, have you and your partner used to keep from getting ? [ Patch/Vaginal ring ] I am actively taking steps to prevent , including 23. [ No ] In the last year, have you or your partner had a scare, where you were not trying to get but were worried enough to use a home test? X. OTHER MEDICAL (OTH) 1. [ 0 ] Rate the amount of pain you have had, on average, over the PAST 24 HOURS 3. [ No ] Since your last PHA, have you received care or treatment for any medical and/or mental health condition(s) from a civilian or non- facility? 5. Member acknowledged responsibility for reporting health issues. 7. [ No ] Woud you like to schedule an appointment with a health care provider to discuss any health concerns? XI. SEPARATION AND CUSTODIAL 1. [ No ] Are you planning to separate or retire within the next year from Active Duty or [place] Duty (activated for greater than 30 continuous days) OR do you intend to file a claim for disability compensation with the [employer]? PART B. RECORD REVIEW AND RECOMMENDATIONS I. RECORD REVIEWER INFORMATION 1. Last Name: CATALINO 2. First Name: GERMÁN 3. Middle Name: Naty 4. Service Branch: [employer] 5. Status: Active [employer] [place] or Full-Time Support 6. 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 EMAIL: [email or web address] 8. Facility: [facility] 9. Unit: [facility] 10. Address: [address] [place] 11. State: [place] 12. Zip Code: [address] 13. 14. Date Record Review: II. MEDICAL SCREENING 1. [ ] Date of catering staff member's most recent PHA 2. [ 5 feet 7 inches Date: ] catering staff member's most recently documented height 3. [ 174 pounds Date: ] catering staff member's most recently documented weight 4. [ 115/73 Date: ] catering staff member's most recently documented blood pressure reading 5. [ No ] Does the catering staff member have a history of abnormal blood pressure since their last PHA? 6. [ Yes ] Does the catering staff member have a laboratory test of sickle cell trait documented in their permanent medical record? 7. [ No Cholesterol Test Documented ] What is the date of the catering staff member's most recently documented cholesterol test? 9. [ ONDANSETRON PREDNISONE ] List of catering staff member's active medications listed in their permanent medical record 10. [ Yes: ONDANSETRON PREDNISONE ] Is there a discrepancy between the active medication record review and the catering staff member's self-reported list of medications? 11. [ No Outside Care Documented ] List documented significant care the catering staff member has received since their last PHA from a provider OUTSIDE the Health System 12. [ No ] Is there a discrepancy between the catering staff member's list of OUTSIDE care (from OT5), and the OUTSIDE care found in the record? 13. [ No Inside Care Documented ] List documented significant care the catering staff member has received since their last PHA from a provider INSIDE the Health System 15. [ Not Answered ] Confirm that vaccine exemptions are listed in the medical record for each vaccine listed IV. FAMILY HISTORY AND LIFESTYLE 1. [ Yes ] Does the [id number] reflect the catering staff member's reported family history? VII. INDIVIDUAL MEDICAL READINESS 1. [ No ] Does the catering staff member have an Assignment Limitation Code C? 3. [ Classification: 1 ] Most recently documented dental exam 4. [ Yes ] Is the catering staff member current on all required immunizations in the immunization tracking system? 6. Does the catering staff member have the following laboratory tests documented in their permanent medical record? [ Yes ] HIV test within the PAST 24 months [ Yes ] G6PD results on file [ Yes ] Blood type and Rh on file [ Yes ] DNA test on file IX. ADDITIONAL RECORD REVIEWER COMMENTS 1. This record review does NOT have a need for provider notification or referral.2. Additional comments about this record review that need to be forwarded to the Health Sociology Faculty Member completing PART C: Life stressor: sleep. No DLCs Supplements: protein/creatine, multi vit No alcohol concerns. no tobacco use. No significant findings in JLV Date Record Review Completed: --------- PART C. HEALTH CARE PROVIDER I. MENTAL HEALTH ASSESSMENT (MHA) PROVIDER INFORMATION 1. Last Name: AURY 2. First Name: SHAHBAZ 3. Middle Name: 4. Service Branch: [employer] 5. 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 Title: Physician (DO KRYSTYNA) 7. EMAIL: [email or web address] 8. Facility: [address] [place], [place] [address] 9. Unit: [address] [place], [place] [address] 10. Address: [address] [place] [address] 11. State: [place] 12. Zip Code: [address] 13. Phone: [phone] 14. Date HCP Review initiated: 1. Member marked that they have a concern or a difficulty with a major life stressor: sleep Additional info: Referral is not indicated because there is no significant impairment. 2. Address concerns identified on member questions 2 and 3. History of mental health care: N/A Member's response: Provider's comments: Medications: N/A Member's response: Provider's comments: 3. Member's AUDIT-C screening score was 2. (nothing required) 4. Member did not michelle yes on two or more of questions 6a through 6e. 5. Member did not michelle More than half the days or nearly every day on question 7a or 7b. 6. Suicide risk evaluation. 6. a. Ask: Over the past month, have you wished you were or wished you could go to sleep and not wake up?: No 6. b. Ask: Have you actually had any thoughts of killing yourself?: No 6. f. 1. Ask: In you lifetime, have you done anything, started to do anything, or prepared to do anything to end your life?: No 6. g. Further risk assessment comments: no concerns 7. Member states that they have not had thoughts or concerns over the past month that they might hurt or lose control with someone. 9. Summary of Provider's identified concerns needing referrals: None 11. Comments: 13. Supplemental services recommended/information provided: No supplemental services required Date MHA Certified: III. PERIODIC HEALTH ASSESSMENT (PHA) PROVIDER INFORMATION 1. Last Name: AURY 2. First Name: SHAHBAZ 3. Middle Name: 4. Service Branch: [facility] [place] 5. 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 Title: Physician (DO KRYSTYNA) 7. EMAIL: [email or web address] 8. Facility: [facility] 9. Unit: [address] [place], [place] [address] 10. Address: [address] [place] [address] 11. State: [place] 12. Zip Code: [address] 13. Phone: [phone] 14. Date HCP Review initiated: IV. PERIODIC HEALTH ASSESSMENT PROVIDER RECOMMENDATIONS and REFERRALS 1. Provider concerns with this assessment: No issues or concerns identified V. SUMMARY AND COMMENTS 1. Additional information summarizing findings during the catering staff member assessment: 2. Provider Comments: . INDIVIDUAL MEDICAL READINESS DISPOSITION DETERMINATION JACQUES: Ready DEN: Ready IMM: Ready LAB: Ready ME: Ready IMR Status: Fully Medically Ready VII. SERVICE MEDICAL DEPLOYABILITY EVALUATION INDICATED Based on your review of all documentation, is the catering staff member medically deployable without limitations? Reference [facility] 6490.07 Yes (catering staff member DOES NOT currently have a medical condition that limits deployability) Date PHA Completed: END OF [id number] REPORT Impression:Meets?medical standards per MAHAMED 48-123/MSD. Disposition:?No AF469 changes based on this encounter.World-Wide Qualified. Extracted from:Title: AUoF PHA / MHA Author: GERMÁN BAE Date: 01/08/23 Mbr came in for appt Addendum by LEONARD WILKINS on January 08, 2023 08:47 EDT History of Refractive Surgery- No?Contact Lenses- N/A?Enrolled in Contact Lens Program- N/A?Gas Mask Inserts ordered- No?Current SRX on file- No DVA (uncorrected) OD: 20/20 OS:?20/20 ?Peripheral vision test: normal Color vision test: normal Optometry findings meet standards- Yes Addendum by LEONARD WILKINS on January 08, 2023 08:49 EDT ?Vitals: Blood Pressure:???115/73 Heart Rate: 70 Height: 67 Weight: 175 BMI: 27 Medications: claritin PRN for seasonal allergies Chronic Problems: none SF 507: Reviewed no changes from PHAQ Comments: Addendum by SHAHBAZ JEFFERS MD on January 08, 2023 09:52 EDT Chief Complaint: Member here for annual PHA.?No acute complaints.?IMR?green. HEENT:?Normal Joints:?Normal Lungs:?Normal Heart:?Normal Comments: ANNUAL PERIODIC HEALTH ASSESSMENT I. 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 Last Name: GHASSAN 2. First Name: JOSE MANUEL 3. Middle Name: GIRISH 4. Assessment Date: 5. : 6. Age: 27 7. Gender: M 8. [employer] ID Number: [id number] 9. Service Branch: [employer] 10. 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 Status: [employer] [place] 12. 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 Unit Name: [address] 14. Duty Station/Location: [place] 15. UIC: [id number] 16. Is this your first Periodic Health Assessment (PHA)?: N 17. Are you enrolled in a secure messaging system with your health care provider?: N 18. Current contact information: Preferred Method: Email 1 DSN: [id number] Day Time Phone: [phone] Night Time Phone: Email 1: [email or web address] Email 2: Address: [address] [place] [address] City: [place] State: [place] Zip Code: [address] 19. Point of contact who can always reach you: Name: Tiffanie Ghassan Phone 1: [phone] Phone 2: EMAIL: Address: City: State: Zip Code: II. DEPLOYMENT INFORMATION (DEP) 1. [ 0 ] Total number of deployments in the PAST 5 YEARS 4. [ N ] Are you going to deploy within the NEXT 120 DAYS? III. OCCUPATIONAL INFORMATION (OCC) 1 [ [id number] ] What is your occupational code 2. [ driving,walking, ] Describe your typical duty 3. [ No ] Does your specialty require an operational duty physical exam? 4. [ Yes ] Are you currently enrolled in a medical surveillance/occupational health program?: Yes IV. MEDICAL CONDITIONS (JACQUES): 1. Since your last PHA, have you experienced any of the following health conditions, and if so, what is your status? [ ] Conditions with no medical care [ ] Conditions with medical care, but no longer under treatment [ ] Conditions with medical care, and NOW under treatment 2. Since your last PHA, have you experienced any of the following health conditions, and if so, what is your status? [ ] Conditions with no medical care [ ] Conditions with medical care, but no longer under treatment [ ] Conditions with medical care, and NOW under treatment 3. For any condition marked YES in question 1 or 2, are you currently on any profile or limited duty for that condition? [ ] Conditions 4. [ No ] Have you been based or stationed at a location where an open burn pit was used? 5. [ No ] Have you been exposed to toxic airborne chemicals or other airborne contaminants? 8. Have you had any surgery since your last PHA?: No 10.a. [ No ] Since your last PHA, has a health care provider recommended surgery(s) that you have not had? 11.a. [ No ] Do you currently require hearing aids, special medical supplies, CPAP, adaptive equipment, assistive technology devices, and/or other special accommodations? 12.a. [ No ] Do you have a waiver or profile for any part of your Service's physical fitness test? 13.a. [ No ] Do you have any problems wearing a gas mask, ballistic helmet, body armor, and/or chemical/biological protective garments? 14.a. [ No ] Have you ever been told by a health care provider that you SHOULD NOT receive an immunization for medical reasons? 15.a. [ No ] Do you have a permanent profile or an Assignment Limitation Code C? 16.a. [ No ] Are you on a temporary profile or limited duty? 17. [ 0 ] During the PAST 2 years, how many times have you been placed on a temporary profile or on limited duty? V. INDIVIDUAL MEDICAL READINESS (IMR) 1. [ No ] Do you have any allergies? 3. [ Not required ] Do you have red medical warning dog tags? 4. [ No ] Do you wear corrective lenses? . BEHAVIORAL HEALTH (MHA) 1. a. [ None ] Over the PAST MONTH, what major life stressors have you experienced that are a cause of significant concern or make it difficult for you to do your work, take care of things at home, or get along with other people (for example, serious conflicts with others, relationship problems, or a legal, disciplinary or financial problem)? 2. a. [ No ] In the PAST YEAR did you receive care for any mental health condition or concern such as, but not limited to post traumatic stress disorder (PTSD), depression, anxiety disorder, alcohol abuse or substance abuse? 3. [ None ] What prescription or over-the counter medications (including herbals/supplements) for sleep, pain, combat stress, or a mental health problem are you CURRENTLY taking? 4. a. [ No ] In the past 12 months, have you gambled? 5. a. [ Monthly or less ] How often do you have a drink containing alcohol? 5. b. [ 1 or 2 ] How many drinks containing alcohol do you have on a typical day when you are drinking? 5. c. [ Less than monthly ] How often do you have six or more drinks on one occasion? 6. Have you ever had any experience that was so frightening, horrible, or upsetting that in the PAST MONTH, you: 6. a. [ No ] Have had nightmares about it or thought about it when you did not want to? 6. b. [ No ] Tried hard not to think about it or went out of your way to avoid situations that remind you of it? 6. c. [ No ] Were constantly on guard, watchful or easily startled? 6. d. [ No ] [place] numb or detached from others, activities, or your surroundings? 6. e. [ Not answered ] [place] guilt or unable to stop blaming yourself or others for the event(s) or any problems the event(s) may have caused? 7. Over the LAST 2 WEEKS, how often have you been bothered by the following problems? 7. a. [ Not at all ] Little interest or pleasure in doing things 7. b. [ Not at all ] Feeling down, depressed, or hopeless 8. [ No ] Would you like to schedule an appointment with a health care provider to discuss any health concern(s)? 9. [ No ] Are you interested in receiving information or assistance for a stress, emotional or alcohol concern? 10. [ No ] Are you interested in receiving assistance for a family or relationship concern? 11. [ No ] Would you like to schedule a visit with a neuro intensivist physician, mental health care provider, or a community support counselor? VII. FAMILY HISTORY AND LIFESTYLE (LIF) 1. [ Good ] Overall, how would you rate your health during the PAST MONTH? 2. [ Diabet ] Member indicates that family members have the following problems 5. The following family members has/had a history of diabetes: Unknown: Grandmother, Grandfather 6. [ Yes ] I participate in moderate intensity physical activites at least 2.5 hours, or a combination of moderate and vigorous aerobic activites, for at least 75 minutes per week. 7. In a typical week, I do physical activities specifically designed to STRENGTHEN my muscles: [ 2 ] Day(s) per week 8. [ None ] What prescriptions or [id number] medications are you CURRENTLY taking for health problems on a ROUTINE BASIS? 9. Which of the following products have you taken since your last PHA: Protein Supplements/Creatine: Every other day Multi-Vitamins: Every other day 11. Think about the PAST 30 DAYS. How often did you eat/drink the following foods/beverages? [ 3 to 6 servings per week ] Fruits [ 1 or 2 servings per week ] Vegetables [ Rarely or Never ] Starchy Vegetables [ 1 or 2 servings per week ] Whole Grains [ 1 or 2 servings per week ] Dairy and Calcium Containing Foods [ Rarely or Never ] Fish [ 3 to 6 servings per week ] Lean Protein [ 1 or 2 servings per week ] Sugar-Sweetened Beverages ] Have you had a cholesterol check by a health insurance healthcare consultant within the PAST 5 YEARS? 13.a. In the PAST 30 DAYS, which of the following products have you used on at least one day? None 15. Which of the following best describes your past tobacco use? I have never used tobacco products. 16. [ No ] Are you regularly exposed to secondhand smoke? 17. [ 5 to less than 7 hours ] During the LAST 2 WEEKS, how many hours of sleep did you get on most days? 18. [ No ] During the LAST 2 WEEKS, have you felt impaired or unable to adequately perform due to sleepiness or poor quality sleep? 19. [ No ] Have you had any unexplained weight loss or gain since your last PHA? 20. Member is not at risk for sexually transmitted infections. 22. Since your last PHA, what, if anything, have you and your partner used to keep from getting ? [ Patch/Vaginal ring ] I am actively taking steps to prevent , including 23. [ No ] In the last year, have you or your partner had a scare, where you were not trying to get but were worried enough to use a home test? X. OTHER MEDICAL (OTH) 1. [ 0 ] Rate the amount of pain you have had, on average, over the PAST 24 HOURS 3. [ No ] Since your last PHA, have you received care or treatment for any medical and/or mental health condition(s) from a civilian or non- facility? 5. Member acknowledged responsibility for reporting health issues. 7. [ No ] Woud you like to schedule an appointment with a health care provider to discuss any health concerns? XI. SEPARATION AND CUSTODIAL 1. [ No ] Are you planning to separate or retire within the next year from Active Duty or [place] Duty (activated for greater than 30 continuous days) OR do you intend to file a claim for disability compensation with the [employer]? PART B. RECORD REVIEW AND RECOMMENDATIONS I. RECORD REVIEWER INFORMATION 1. Last Name: DAVIDSONJOHNATHAN MARTE 2. First Name: PALOMO 3. Middle Name: 4. Service Branch: [employer] 5. 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 EMAIL: [email or web address] 8. Facility: [address] [place], [place] [address] 9. Unit: [address] [place], [place] [address] 10. Address: [address] [place] [address] 11. State: [place] 12. Zip Code: [address] 13. Phone: [phone] 14. Date Record Review: II. MEDICAL SCREENING 1. [ ] Date of catering staff member's most recent PHA 2. [ 5 feet 8 inches Date: ] catering staff member's most recently documented height 3. [ 168 pounds Date: ] catering staff member's most recently documented weight 4. [ 130/73 Date: ] catering staff member's most recently documented blood pressure reading 5. [ No ] Does the catering staff member have a history of abnormal blood pressure since their last PHA? 6. [ Yes ] Does the catering staff member have a laboratory test of sickle cell trait documented in their permanent medical record? 7. [ No Cholesterol Test Documented ] What is the date of the catering staff member's most recently documented cholesterol test? 9. [ No Active Medications Documented ] List of catering staff member's active medications listed in their permanent medical record 10. [ No ] Is there a discrepancy between the active medication record review and the catering staff member's self-reported list of medications? 11. [ No Outside Care Documented ] List documented significant care the catering staff member has received since their last PHA from a provider OUTSIDE the Health System 12. [ No ] Is there a discrepancy between the catering staff member's list of OUTSIDE care (from OT5), and the OUTSIDE care found in the record? 13. [ No Inside Care Documented ] List documented significant care the catering staff member has received since their last PHA from a provider INSIDE the Health System 15. [ Not Answered ] Confirm that vaccine exemptions are listed in the medical record for each vaccine listed III. OCCUPATION-SPECIFIC EXAMINATIONS 2. [ ] When was the catering staff member's most recently documented evaluation? IV. FAMILY HISTORY AND LIFESTYLE 1. [ Yes ] Does the [id number] reflect the catering staff member's reported family history? VII. INDIVIDUAL MEDICAL READINESS 1. [ No ] Does the catering staff member have an Assignment Limitation Code C? 3. [ Classification: 1 ] Most recently documented dental exam 4. [ Yes ] Is the catering staff member current on all required immunizations in the immunization tracking system? 6. Does the catering staff member have the following laboratory tests documented in their permanent medical record? [ Yes ] HIV test within the PAST 24 months [ Yes ] G6PD results on file [ Yes ] Blood type and Rh on file [ Yes ] DNA test on file IX. ADDITIONAL RECORD REVIEWER COMMENTS 1. This record review does NOT have a need for provider notification or referral.2. Additional comments about this record review that need to be forwarded to the Health Sociology Faculty Member completing PART C: RR completed. JLV did not show any significant findings. No deployments. NO active profiles. NO health concerns. Date Record Review Completed: --------- PART C. HEALTH CARE PROVIDER I. MENTAL HEALTH ASSESSMENT (MHA) PROVIDER INFORMATION 1. Last Name: AURY 2. First Name: SHAHBAZ 3. Middle Name: 4. Service Branch: [employer] 5. 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 Title: Physician (DO KRYSTYNA) 7. EMAIL: [email or web address] 8. Facility: [facility] 9. Unit: [address] [place], [place] [address] 10. Address: [address] [place] [address] 11. State: [place] 12. Zip Code: [address] 13. Phone: [phone] 14. Date HCP Review initiated: 1. Member marked that they did not have a concern or a difficulty with a major life stressor. 2. Address concerns identified on member questions 2 and 3. History of mental health care: N/A Member's response: Provider's comments: Medications: N/A Member's response: Provider's comments: 3. Member's AUDIT-C screening score was 2. (nothing required) 4. Member did not michelle yes on two or more of questions 6a through 6e. 5. Member did not michelle More than half the days or nearly every day on question 7a or 7b. 6. Suicide risk evaluation. 6. a. Ask: Over the past month, have you wished you were or wished you could go to sleep and not wake up?: No 6. b. Ask: Have you actually had any thoughts of killing yourself?: No 6. f. 1. Ask: In you lifetime, have you done anything, started to do anything, or prepared to do anything to end your life?: No 6. g. Further risk assessment comments: 7. Member states that they have not had thoughts or concerns over the past month that they might hurt or lose control with someone. 9. Summary of Provider's identified concerns needing referrals: None 11. Comments: 13. Supplemental services recommended/information provided: No supplemental services required Date MHA Certified: III. PERIODIC HEALTH ASSESSMENT (PHA) PROVIDER INFORMATION 1. Last Name: AURY 2. First Name: SHAHBAZ 3. Middle Name: 4. Service Branch: [facility] [place] 5. 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 Title: Physician (DO KRYSTYNA) 7. EMAIL: [email or web address] 8. Facility: [address] [place], [place] [address] 9. Unit: [address] [place], [place] [address] 10. Address: [address] [place] [address] 11. State: [place] 12. Zip Code: [address] 13. Phone: [phone] 14. Date HCP Review initiated: IV. PERIODIC HEALTH ASSESSMENT PROVIDER RECOMMENDATIONS and REFERRALS 1. Provider concerns with this assessment: No issues or concerns identified V. SUMMARY AND COMMENTS 1. Additional information summarizing findings during the catering staff member assessment: 2. Provider Comments: . INDIVIDUAL MEDICAL READINESS DISPOSITION DETERMINATION JACQUES: Ready DEN: Ready IMM: Ready LAB: Ready ME: Ready IMR Status: Fully Medically Ready VII. SERVICE MEDICAL DEPLOYABILITY EVALUATION INDICATED Based on your review of all documentation, is the catering staff member medically deployable without limitations? Reference [facility] 6490.07 Yes (catering staff member DOES NOT currently have a medical condition that limits deployability) Date PHA Completed: END OF [id number] REPORT Impression:Meets?medical standards per MAHAMED 48-123/MSD. Disposition:?No AF469 changes based on this encounter.World-Wide Qualified. 03/10/2024 Ambulatory Pharmacy Functional Status Combined list of recent functional and cognitive assessments recorded at Department of Defense and Veterans Affairs (VA).VA Functional [place] Measurement (FIM) Scale: 1 = Total Assistance (Subject = 0% +), 2 = Maximal Assistance (Subject = 25% +), 3 = Moderate Assistance (Subject = 50% +), 4 = Minimal Assistance (Subject = 75% +), 5 = Supervision, 6 = Modified [place] (Device), 7 = Complete [place] (Timely, Safely). Assessment Date/Time Source Assessment Type Assessment Skill Assessment Score Assessment Details No data available for this section
[2024-03-10 17:29] LABS: Appearance Urine Clear; Color Urine Yellow; Glucose Urine UA Negative (Negative); Leukocyte Esterase Urine Negative (Negative); Nitrite Urine Negative (Negative); Urine Blood Negative (Negative); Urine Ketones Negative (Negative); Urine Protein Negative (Neg-Trace)
[2024-03-10 21:23] VITALS: BP 122/61; PULSE 68; RESP 16; TEMP 36.4; O2SAT 100
--- OUTSIDE RECORDS SUMMARY | 2024-03-10 21:24 | XMS_ITS | Continuity of Care Document ---
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 BOTTLE Active [id number] 2023 14 Pharmac y Data Transac tion Service Facilit y ONDANSETRON ODT (ONDANSETRO N), 4 MG, TAB RAPDIS, ORAL, AUROBINDO PHARM, 30 ea. BLIST PACK Active [id number] 4 2023 10 Pharmac y Data Transac tion Service Facilit y PREDNISONE (prednisone ), 20 MG, TABLET, ORAL, MYLAN, 500 ea. BOTTLE Active [id number] 2023 7 Pharmac y Data Transac tion Service Facilit y Allergies, Adverse Reactions, Alerts Combined list of allergies from Department of Defense and Veterans Affairs facilities. It does not include entries that were removed or entered in error. Substance Category Reaction Severity Reaction type Status Date Reported Comments Source No Known Allergies Drug allergy (disorder) active 01/16/2016 [facility] [address] Immunizations Combined list of available immunizations from the Department of Defense and Veterans Affairs facilities. Immunization Series Date Given Administered By Site Reaction Lot Number CVX Code Drug Junior Designer Status Comments Source COVID-19, mRNA, LNP-S, PF, 30 mcg/0.3 mL dose 2020 [employer] [place] (PFR) Not Given COVID-19, mRNA, LNP-S, PF, 30 mcg/0.3 mL dose [facility] COVID-19, mRNA, LNP-S, PF, 30 mcg/0.3 mL dose 2020 NADIRAS*Bio [place] (PFR) Not Given COVID-19, mRNA, LNP-S, PF, 30 mcg/0.3 mL dose DoD influenza virus vaccine, inactivated 2019 JACK Ortiz ochoa, left (delt oid) [id number] Seqirus, A [employer] complet ed influenza virus vaccine, inactivat ed 12/28/19 Given [id number] cathy Ocasio [facility] influenza, injectable, quadrivalent- pf 2018 [id number] Seqirus complet ed influenza , [...] DoD Influenza, inj, MDCK, quadrivalent- pf 2016 [id number] Seqirus complet ed Influenza , inj, MDCK, quadrival ent-pf 02/13/17 Given Ambulat ory Pharmac y Influenza, inj, MDCK, quadrivalent- pf 2016 [id number] Seqirus complet ed Influenza , inj, MDCK, quadrival ent-pf 02/13/17 Given Ambulat ory Pharmac y Influenza, injectable, Madin Williams Canine Kidney, preservative free, quadrivalent 2 2016 [id number] Seqirus (SEQ) comple t ed Influenza [...] ory Pharmac y varicella virus vaccine 2015 [id number] Merck & Company Inc complet ed varicella virus vaccine 02/24/16 Given Ambulat ory Pharmac y varicella virus vaccine 2015 [id number] 21 Merck & Company Inc complet ed varicella virus vaccine 02/24/16 Given Ambulat ory Pharmac y hepatitis B adult vaccine 2015 [id number] 43 GlaxoSmithKli ne complet ed hepatitis B adult vaccine 02/24/16 Given Ambulat ory Pharmac y varicella virus vaccine 1 2015 [id number] 21 Merck (MSD) complet ed varicella virus vaccine DoD hepatitis B vaccine, adult dosage 1 2015 [id number] 43 SmithKline (SKB) complet ed hepatitis B vaccine, adult dosage DoD varicella virus vaccine 2015 [id number] 21 Merck & Company Inc complet ed varicella virus vaccine 01/14/16 Given Ambulat ory Pharmac y hepatitis B adult vaccine 2015 [id number] 43 GlaxoSmithKli ne complet ed hepatitis B adult vaccine 01/14/16 Given Ambulat ory Pharmac y varicella virus vaccine 2015 [id number] 21 Merck & Company Inc complet ed varicella virus vaccine 01/14/16 Given Ambulat ory Pharmac y hepatitis B adult vaccine 2015 [id number] 43 GlaxoSmithKli ne complet ed hepatitis B adult vaccine 01/14/16 Given Ambulat ory Pharmac y varicella virus vaccine 1 2015 [id number] 21 Merck (MSD) complet ed varicella virus vaccine DoD hepatitis B vaccine, adult dosage 1 2015 [id number] 43 SmithKline (SKB) complet ed hepatitis B vaccine, adult dosage DoD tetanus, diphtheria, acellular pertu is 2015 [id number] 115 GlaxoSmithKli ne complet ed tetanus, diphtheri a, acellular pertussis 01/09/16 Given Ambulat ory Pharmac y tuberculin purified protein derivative 2015 [id number] 96 sanofi pasteur complet ed tuberculi n purified protein derivativ e 01/09/16 Given Ambulat ory Pharmac y influenza, injectable, quadrivalent- pf 2015 [id number] 150 Seqirus complet ed influenza , injectabl e, quadrival ent-pf 01/09/16 Given Ambulat ory Pharmac y poliovirus vaccine, inactivated 2015 [id number] 10 sanofi pasteur complet ed polioviru s vaccine, inactivat ed 01/09/16 Given Ambulat ory Pharmac y adenovirus vaccine, live 2015 [id number] 143 Teva Pharmaceutica ls complet ed adenoviru s vaccine, live 01/09/16 Given Ambulat ory Pharmac y influenza, seasonal, injectable-pf 2015 [id number] 140 Seqirus complet ed influenza , seasonal, injectabl e-pf 01/09/16 Given Ambulat ory Pharmac y meningococcal A,C,Y,W-135 (MCV4P) 2015 [id number] 114 sanofi pasteur complet ed meningoco ccal A,C,Y,W-1 35 (MCV4P) 01/09/16 Given Ambulat ory Pharmac y tetanus, diphtheria, acellular pertu is 2015 [id number] 115 SongtradrKli ne complet ed tetanus, diphtheri a, acellular pertussis 01/09/16 Given Ambulat ory Pharmac y meningococcal A,C,Y,W-135 (MCV4P) 2015 [id number] 114 sanofi pasteur complet ed meningoco ccal A,C,Y,W-1 35 (MCV4P) 01/09/16 Given Ambulat ory Pharmac y poliovirus vaccine, inactivated 2015 [id number] 10 sanofi pasteur complet ed polioviru s vaccine, inactivat ed 01/09/16 Given Ambulat ory Pharmac y adenovirus vaccine, live 2015 [id number] 6 143 Teva Pharmaceutica ls complet ed adenoviru s vaccine, live 01/09/16 Given Ambulat ory Pharmac y influenza, seasonal, injectable-pf 2015 [id number] 140 Seqirus complet ed influenza , seasonal, injectabl e-pf 01/09/16 Given Ambulat ory Pharmac y influenza, injectable, quadrivalent- pf 2015 [id number] 150 Seqirus complet ed influenza , injectabl e, quadrival ent-pf 01/09/16 Given Ambulat ory Pharmac y poliovirus vaccine, inactivated 1 2015 [id number] 10 Sanofi Pasteur ([facility]) complet ed polioviru s vaccine, inactivat ed DoD meningococcal polysaccharid e (groups A, C, Y and W-135) diphtheria toxoid conjugate vaccine (MCV4P) 1 2015 [id number] 114 Sanofi Pasteur ([facility]) complet ed meningoco ccal polysacch aride (groups A, C, Y and W-135) diphtheri a toxoid conjugate vaccine (MCV4P) DoD tetanus toxoid, reduced diphtheria toxoid, and acellular pertu is vaccine, adsorbed 1 2015 [id number] 115 BrandBeauScammon (SKB) complet ed tetanus toxoid, reduced diphtheri a toxoid, and acellular pertussis vaccine, adsorbed DoD Influenza, seasonal, injectable, preservative free 1 2015 [id number] 140 Seqirus (SEQ) comple t ed Influenza , seasonal, injectabl e, preservat gema free DoD Adenovirus, type 4 and type 7, live, oral 1 2015 [id number] 143 [facility] (R) complet ed Adenoviru s, type 4 and type 7, live, oral DoD Influenza, injectable, quadrivalent, preservative free 1 2015 [id number] 150 Seqirus (SEQ) comple t ed Influenza [...] [facility] facilities [facility] 2) Encounters from the Department of Defense facilities going back up to 280 months. Location Location Details Encounter Type Encounter Number Reason For Visit Attending Provider ADM Date DC Date Status Disposition Source [facility] [address](Hea ring Conservat ion, BMT) OUTPATIENT [id number] MAXIMUS AJITH Valadez 01/15 Released w/o Limitations [facility] [place] [address](H earing Conserv ation, BMT) [facility] [address]([facility]) OUTPATIENT [id number] Notes Entered by: DIAN MCCULLOUGH 16 Jan 2016 0805 ------- ------- ------- ------- -- Strep Prophyl VENECIA Quesada 01/15 Released w/o Limitations [facility] [place] [address]([facility]) [facility] [address]([facility]) OUTPATIENT [id number] Notes Entered by: ESMER NGUYEN MA P 21 Jan 2016 1157 ------- ------- ------- ------- -- Cold KERI Marion 01/20 Released w/o Limitations [facility] [place] [address](M Alpha) Carl Aguilar [facility] 6 [facility]) TELE CONSULT [id number] Notes Entered by: Alexandr LIMON 09 Aug 2017 1130 ------- ------- ------- ------- -- In Person RANDELL SMITH 08/09 Other Not Elsewhere Classified Carl woodruff [facility]( 926 [facility]) [id number] [facility] Outpatient [id number] SHAHBAZ FELIPE 12/23 Discharge Disposition: Home or Self Care [id number] [facility] Procedures Combined list of: 1) Procedures from Department of Veterans Affairs facilities going back up to thelast 18 months, not all VA non-surgical procedures are included; 2) All procedures from the Department of Defense facilities. Procedure Procedure Type Code Date Perfomer Comments Rafita rose Physician Supervised Injection Intramuscular Antibiotic Physician Supervised Injection Intramuscular Antibiotic [id number] 01/16/20 16 VENECIA MCCULLOUGH [facility] Threshold Audiogram (Pure Tone) Automated Threshold Audiogram (Pure Tone) Automated [id number] 01/16/20 16 MAXIMUS AJITH Rory [facility] THERAPEUTIC, PROPHYLACTIC, OR DIAGNOSTIC INJECTION (SPECIFY SUBSTANCE OR DRUG); SUBCUTANEOUS OR INTRAMUSCULAR 01/16/20 16 [facility] PURE TONE AUDIOMETRY (THRESHOLD), AUTOMATED; AIR ONLY 01/16/20 16 [facility] No data available for this section Ambulato ry Pharmacy Social History Combined list of available smoking, tobacco, and other social history from Department of Defense and Veterans Affairs facilities. Social History Type Response Date Comment Rafita rose Male 12/08/2019 Ambulatory Pha rmacy This section is an empty soc ial history section. [facility] Sexual Orientation Ambula tory Pharmacy Gender identity Ambulator y Pharmacy Assessment and Plan Combined list of future [...] Heart:?Normal Comments: ANNUAL PERIODIC HEALTH ASSESSMENT I. SANITARY ENGINEER INFORMATION AND DEMOGRAPHICS (SMI) 1. Last Name: FERRELL 2. First Name: JOSE MANUEL 3. Middle Name: GIRISH 4. Assessment Date: 5. : 6. Age: 28 7. Gender: M 8. DoD ID Number: [id number] 9. Service Branch: [employer] 10. 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 Unit Name: [address] [employer] [address] 14. Duty Station/Location: [place] 15. UIC: [id number] 16. Is this your first Periodic Health Assessment (PHA)?: N 17. Are you enrolled in a secure messaging system with your health care provider?: U 18. Current contact information: Preferred Method: Email 2 DSN: [id number] Day Time Phone: [phone] Night Time Phone: [phone] Email 1: [email or web address] Email 2: [email or web address] Address: [address] [place] [address]: [place] State: [place] Zip Code: [address] 19. Point of contact who can always reach you: Name: Tiffanie Ferrell Phone 1: [phone] Phone 2: EMAIL: Address: [address] [place] [address] City: [place] State: [place] Zip Code: [address] II. DEPLOYMENT INFORMATION (DEP) 1. [ 0 [...] easily startled? 6. d. [ No ] [place] numb or detached from others, activities, or your surroundings? 6. e. [ Not answered ] [place] guilt or unable to stop blaming yourself [...] like to schedule a visit with a director external communications, mental health care provider, or a community [...] 8. [ None ] What prescriptions or tkos-hip-mfgjogl medications are you CURRENTLY taking for health [...] had a cholesterol check by a health care director rn within the PAST 5 YEARS? 13.a. In [...] discuss any health concerns? XI. SEPARATION AND LONG-TERM 1. [ No ] Are you planning to separate or retire within the next year from Active Duty or [place] Duty (activated for greater than 30 continuous days) OR do you intend to file a claim for disability compensation with the [employer]? PART B. RECORD REVIEW AND RECOMMENDATIONS I. RECORD REVIEWER INFORMATION 1. Last Name: CATALINO 2. First Name: GERMÁN 3. Middle Name: Naty 4. Service Branch: [employer] 5. Status: Active [employer] [place] or Full-Time Support 6. 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 EMAIL: [email or web address] 8. Facility: [facility]. [facility] 10. Address: [address] [place] 11. State: [place] 12. Zip Code: [address] 13. 14. Date Record Review: II. MEDICAL SCREENING 1. [ ] Date of tribal council member's most recent PHA 2. [ 5 feet 7 inches Date: ] tribal council member's most recently documented height 3. [ 174 pounds Date: ] tribal council member's most recently documented weight 4. [ 115/73 Date: ] tribal council member's most recently documented blood pressure reading 5. [ No ] Does the tribal council member have a history of abnormal blood pressure since their last PHA? 6. [ Yes ] Does the tribal council member have a laboratory test of sickle cell trait documented in their permanent medical record? 7. [ No Cholesterol Test Documented ] What is the date of the tribal council member's most recently documented cholesterol test? 9. [ ONDANSETRON PREDNISONE ] List of tribal council member's active medications listed in their permanent medical record 10. [ Yes: ONDANSETRON PREDNISONE ] Is there a discrepancy between the active medication record review and the tribal council member's self-reported list of medications? 11. [ No Outside Care Documented ] List documented significant care the tribal council member has received since their last PHA from a provider OUTSIDE the Health System 12. [ No ] Is there a discrepancy between the tribal council member's list of OUTSIDE care (from OT5), and the OUTSIDE care found in the record? 13. [ No Inside Care Documented ] List documented significant care the tribal council member has received since their last PHA from a provider INSIDE the Health System 15. [ Not Answered ] Confirm that vaccine exemptions are listed in the medical record for each vaccine listed IV. FAMILY HISTORY AND LIFESTYLE 1. [ Yes ] Does the [id number] reflect the tribal council member's reported family history? VII. INDIVIDUAL MEDICAL READINESS 1. [ No ] Does the tribal council member have an Assignment Limitation Code C? 3. [ Classification: 1 ] Most recently documented dental exam 4. [ Yes ] Is the tribal council member current on all required immunizations in the immunization tracking system? 6. Does the tribal council member have the following laboratory tests documented [...] need to be forwarded to the Health [facility] completing PART C: Life stressor: sleep. No DLCs Supplements: protein/creatine, multi vit No alcohol concerns. no tobacco use. No significant findings in JLV Date Record Review Completed: --------- PART C. HEALTH CARE PROVIDER I. MENTAL HEALTH ASSESSMENT (MHA) PROVIDER INFORMATION 1. Last Name: AURY 2. First Name: SHAHBAZ 3. Middle Name: 4. Service Branch: [employer] 5. 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 Title: Physician (DO KRYSTYNA) 7. EMAIL: [email or web address] 8. Facility: [address] [place], [place] [address] 9. Unit: [address] [place], [place] [address] 10. Address: [address] [place] [address] 11. State: [place] 12. Zip Code: [address] 13. Phone: [phone] 14. Date HCP Review initiated: 1. Member [...] SHAHBAZ 3. Middle Name: 4. Service Branch: [employer] 5. 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 Title: Physician (DO KRYSTYNA) 7. EMAIL: [email or web address] 8. Facility: [facility] 9. Unit: [address] [place], [place] [address] 10. Address: [address] [place] [address] 11. State: [place] 12. Zip Code: [address] 13. Phone: [phone] 14. Date HCP Review initiated: IV. PERIODIC HEALTH ASSESSMENT PROVIDER RECOMMENDATIONS and REFERRALS 1. Provider concerns with this assessment: No issues or concerns identified V. SUMMARY AND COMMENTS 1. Additional information summarizing findings during the tribal council member assessment: 2. Provider Comments: . INDIVIDUAL MEDICAL READINESS DISPOSITION DETERMINATION JACQUES: Ready DEN: Ready IMM: Ready LAB: Ready ME: Ready IMR Status: Fully Medically Ready VII. SERVICE MEDICAL DEPLOYABILITY EVALUATION INDICATED Based on your review of all documentation, is the tribal council member medically deployable without limitations? Reference [facility] 6490.07 Yes (tribal council member DOES NOT currently have a medical condition that limits deployability) Date PHA Completed: END OF [id number] REPORT Impression:Meets?medical standards per MAHAMED 48-123/MSD. Disposition:?No [...] Heart:?Normal Comments: ANNUAL PERIODIC HEALTH ASSESSMENT I. SANITARY ENGINEER INFORMATION AND DEMOGRAPHICS (SMI) 1. Last Name: GHASSAN 2. First Name: JOSE MANUEL 3. Middle Name: GIRISH 4. Assessment Date: 5. : 6. Age: 27 7. Gender: M 8. DoD ID Number: [id number] 9. Service Branch: [employer] 10. 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 Unit Name: [address] [employer] 14. Duty Station/Location: [place] 15. UIC: [id number] 16. Is this your first Periodic Health Assessment (PHA)?: N 17. Are you enrolled in a secure messaging system with your health care provider?: N 18. Current contact information: Preferred Method: Email 1 DSN: [id number] Day Time Phone: [phone] Night Time Phone: Email 1: [email or web address] Email 2: Address: [address] [place] [address] City: [place] State: [place] Zip Code: [address] 19. Point of contact who can always reach you: Name: Tiffanie Ghassan Phone 1: [phone] Phone 2: EMAIL: Address: City: State: Zip [...] easily startled? 6. d. [ No ] [place] numb or detached from others, activities, or your surroundings? 6. e. [ Not answered ] [place] guilt or unable to stop blaming yourself [...] like to schedule a visit with a director external communications, mental health care provider, or a community [...] 8. [ None ] What prescriptions or rydk-oqd-lfpflpu medications are you CURRENTLY taking for health [...] had a cholesterol check by a health care director rn within the PAST 5 YEARS? 13.a. In [...] discuss any health concerns? XI. SEPARATION AND LONG-TERM 1. [ No ] Are you planning to separate or retire within the next year from Active Duty or [place] Duty (activated for greater than 30 continuous days) OR do you intend to file a claim for disability compensation with the [employer]? PART B. RECORD REVIEW AND RECOMMENDATIONS I. RECORD REVIEWER INFORMATION 1. Last Name: DAVIDSONJOHNATHAN MARTE 2. First Name: PALOMO 3. Middle Name: 4. Service Branch: [employer] 5. 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 EMAIL: [email or web address] 8. Facility: [address] [place], [place] [address] 9. Unit: [address] [place], [place] [address] 10. Address: [address] [place] [address] 11. State: [place] 12. Zip Code: [address] 13. Phone: [phone] 14. Date Record Review: II. MEDICAL SCREENING 1. [ ] Date of tribal council member's most recent PHA 2. [ 5 feet 8 inches Date: ] tribal council member's most recently documented height 3. [ 168 pounds Date: ] tribal council member's most recently documented weight 4. [ 130/73 Date: ] tribal council member's most recently documented blood pressure reading 5. [ No ] Does the tribal council member have a history of abnormal blood pressure since their last PHA? 6. [ Yes ] Does the tribal council member have a laboratory test of sickle cell trait documented in their permanent medical record? 7. [ No Cholesterol Test Documented ] What is the date of the tribal council member's most recently documented cholesterol test? 9. [ No Active Medications Documented ] List of tribal council member's active medications listed in their permanent medical record 10. [ No ] Is there a discrepancy between the active medication record review and the tribal council member's self-reported list of medications? 11. [ No Outside Care Documented ] List documented significant care the tribal council member has received since their last PHA from a provider OUTSIDE the Health System 12. [ No ] Is there a discrepancy between the tribal council member's list of OUTSIDE care (from OT5), and the OUTSIDE care found in the record? 13. [ No Inside Care Documented ] List documented significant care the tribal council member has received since their last PHA from a provider INSIDE the Health System 15. [ Not Answered ] Confirm that vaccine exemptions are listed in the medical record for each vaccine listed III. OCCUPATION-SPECIFIC EXAMINATIONS 2. [ ] When was the tribal council member's most recently documented evaluation? IV. FAMILY HISTORY AND LIFESTYLE 1. [ Yes ] Does the [id number] reflect the tribal council member's reported family history? VII. INDIVIDUAL MEDICAL READINESS 1. [ No ] Does the tribal council member have an Assignment Limitation Code C? 3. [ Classification: 1 ] Most recently documented dental exam 4. [ Yes ] Is the tribal council member current on all required immunizations in the immunization tracking system? 6. Does the tribal council member have the following laboratory tests documented [...] need to be forwarded to the Health [facility] completing PART C: RR completed. JLV did not show any significant findings. No deployments. NO active profiles. NO health concerns. Date Record Review Completed: --------- PART C. HEALTH CARE PROVIDER I. MENTAL HEALTH ASSESSMENT (MHA) PROVIDER INFORMATION 1. Last Name: AURY 2. First Name: SHAHBAZ 3. Middle Name: 4. Service Branch: [employer] 5. 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 Title: Physician (DO KRYSTYNA) 7. EMAIL: [email or web address] 8. Facility: [facility] 9. Unit: [address] [place], [place] [address] 10. Address: [address] [place] [address] 11. State: [place] 12. Zip Code: [address] 13. Phone: [phone] 14. Date HCP Review initiated: 1. Member [...] SHAHBAZ 3. Middle Name: 4. Service Branch: [employer] 5. 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 Title: Physician (DO KRYSTYNA) 7. EMAIL: [email or web address] 8. Facility: [address] [place], [place] [address] 9. Unit: [address] [place], [place] [address] 10. Address: [address] [place] [address] 11. State: [place] 12. Zip Code: [address] 13. Phone: [phone] 14. Date HCP Review initiated: IV. PERIODIC HEALTH ASSESSMENT PROVIDER RECOMMENDATIONS and REFERRALS 1. Provider concerns with this assessment: No issues or concerns identified V. SUMMARY AND COMMENTS 1. Additional information summarizing findings during the tribal council member assessment: 2. Provider Comments: . INDIVIDUAL MEDICAL READINESS DISPOSITION DETERMINATION JACQUES: Ready DEN: Ready IMM: Ready LAB: Ready ME: Ready IMR Status: Fully Medically Ready VII. SERVICE MEDICAL DEPLOYABILITY EVALUATION INDICATED Based on your review of all documentation, is the tribal council member medically deployable without limitations? Reference [facility] 6490.07 Yes (tribal council member DOES NOT currently have a medical condition that limits deployability) Date PHA Completed: END OF [id number] REPORT Impression:Meets?medical standards per MAHAMED 48-123/MSD. Disposition:?No AF469 changes based on this encounter.[facility]. 03/11/2024 Ambulatory Pharmacy Functional Status Combined list of recent functional and cognitive assessments recorded at Department of Defense and Veterans Affairs (VA).VA Functional [place] Measurement (FIM) Scale: 1 = Total Assistance (Subject = 0% +), 2 = Maximal Assistance (Subject = 25% +), 3 = Moderate Assistance (Subject = 50% +), 4 = Minimal Assistance (Subject = 75% +), 5 = Supervision, 6 = Modified [place] (Device), 7 = Complete [place] (Timely, Safely). Assessment Date/Time Source Assessment Type Assessment Skill Assessment Score Assessment Details No data available for this section
[2024-03-10 22:25] VITALS: BP 122/61; PULSE 68; RESP 16; TEMP 36.4; O2SAT 100
== END 2024-03-10 22:26 | disposition home or self-care (01) ==
PROVIDERS: Registered Nurse Emergency; Emergency Provider Emergency Medicine
DX: S39.012A Strain of muscle, fascia and tendon of lower back, initial encounter (principal); X50.9XXA Other and unspecified overexertion or strenuous movements or postures, initial encounter; Y93.A1 Activity, exercise machines primarily for cardiorespiratory conditioning; Y92.9 Unspecified place or not applicable; Y99.9 Unspecified external cause status
CPT/HCPCS: 72100; 81003; 99283; 99284

== ENCOUNTER → 2024-03-10 16:16 | Outpatient (BNV) | payer OTHER, SELFPAY | PROVIDERS: Visit Provider Specialist | DX: M54.50 Low back pain, unspecified (principal) | CPT/HCPCS: 72100 ==